=== PATIENT | male | born 1955 ===

== ENCOUNTER 2021-06-27 17:33 | Emergency (ER) | payer SELFPAY ==
[2021-06-27 17:41] VITALS: BP 147/90
[2021-06-27 18:35] LABS: Basophils # (Auto) 0.1 K/mm3 (0.0-0.1); Basophils % (Auto) 1.4 % (0.0-1.8); Eosinophils # (Auto) 0.1 K/mm3 (0.0-0.4); Eosinophils % (Auto) 1.3 % (0.0-4.3); Lymphocytes # (Auto) 0.8 K/mm3 (1.2-5.4); Lymphocytes % (Auto) 20.6 % (13.4-35.0); Mean Corpuscular HGB Conc 30 % (32-34); Mean Corpuscular Volume 80 fl (84-94); Monocytes # (Auto) 0.3 K/mm3 (0.0-0.8); Monocytes % (Auto) 7.6 % (0.0-7.3); Platelet Count 264 K/mm3 (140-440); Red Cell Distribution Width 15.5 % (13.2-15.2)
[2021-06-27 18:37] LABS: Hematocrit 42.6 % (35.5-45.6); Hemoglobin 12.8 gm/dl (11.8-15.2)
[2021-06-27 18:53] LABS: Alanine Aminotransferase 36 units/L (7-56); Albumin 4.4 g/dL (3.9-5); BUN/Creatinine Ratio 12; Blood Urea Nitrogen 12 mg/dL (9-20); Calcium 8.9 mg/dL (8.4-10.2); Hemolysis Index 9
--- NOTE | 2021-06-27 19:46 | Emergency Department Report ---
HPI - General Chief Complaint: Weakness Time Seen by Provider: 06/27/21 18:01 - HPI HPI: 65-year-old -[place] male presents to the emergency department with a complaint of having some generalized weakness and fatigue. When the patient first arrived to the emergency department for triage he said that he felt as if he was going to pass out. However, at the time of my examination the patient says that he feels somewhat improved. He denies any headache, vision change, slurred speech, chest pain, fever. He does complain of generalized back pain but says that this is a chronic issue for him. Patient denies having any past medical history but also admits that he has never seen a primary care physician. He denies any tobacco use or illicit drug use. The patient is a daily alcohol drinker but denies any history of dependence or significant withdrawal. ED Review of Systems ROS: Stated complaint: WEAK Other details as noted in HPI Comment: All other systems reviewed and negative Constitutional: weakness, other (Fatigue). denies: chills, fever Eyes: denies: eye pain, vision change ENT: denies: ear pain, throat pain Respiratory: denies: cough, shortness of breath Cardiovascular: denies: chest pain, palpitations Gastrointestinal: denies: abdominal pain, vomiting Genitourinary: denies: dysuria, discharge Musculoskeletal: back pain (Chronic). denies: arthralgia Skin: denies: rash, lesions Neurological: other (Dizziness/lightheadedness). denies: headache Physical Exam - Physical Exam Vital Signs: Vital Signs 06/27/21 17:40 Temperature 98.3 F Pulse Rate 101 H Respiratory 18 Rate Blood Pressure 147/90 [Left] O2 Sat by Pulse 97 Oximetry Physical Exam: GENERAL: The patient is well-developed well-nourished. HENT: Normocephalic. Atraumatic. Patient has moist mucous membranes. EYES: Extraocular motions are intact. No nystagmus. NECK: Supple. Trachea is midline. CHEST/LUNGS: Clear to auscultation. There is no respiratory distress noted. HEART/CARDIOVASCULAR: Regular. There is no tachycardia. There is no murmur. ABDOMEN: Abdomen is soft, nontender. Patient has normal bowel sounds. There is no abdominal distention. SKIN: Skin is warm and dry. NEURO: The patient is awake, alert, and oriented. The patient is cooperative. The patient has no focal neurologic deficits. Normal speech. Cranial nerves II through XII grossly intact. No facial asymmetry. No pronator drift or dy smetria. MUSCULOSKELETAL: There is no tenderness or deformity. There is no limitation range of motion. Muscle strength 5 out of 5 for upper and lower extremities bilaterally. BACK: There is both thoracic and lumbar bilateral paraspinal tenderness to palpation. ED Course Vital Signs 06/27/21 17:40 Temperature 98.3 F Pulse Rate 101 H Respiratory 18 Rate Blood Pressure 147/90 [Left] O2 Sat by Pulse 97 Oximetry ED Medical Decision Making - Lab Data Result diagrams: 06/27/21 18:06/27/21 18: Lab Results 06/27/21 06/27/21 06/27/21 Range/Units 18: 18: 18:22 WBC 4.1 L (4.5-11.0) K/mm3 RBC 5.30 H (3.65-5.03) M/mm3 Hgb 12.8 (11.8-15.2) gm/dl Hct 42.6 (35.5-45.6) % MCV 80 L (84-94) fl MCH 24 L (28-32) pg MCHC 30 L (32-34) % RDW 15.5 H (13.2-15.2) % Plt Count 264 (140-440) K/mm3 Lymph % (Auto) 20.6 (13.4-35.0) % [place] % (Auto) 7.6 H (0.0-7.3) % Eos % (Auto) 1.3 (0.0-4.3) % Baso % (Auto) 1.4 (0.0-1.8) % Lymph # (Auto) 0.8 L (1.2-5.4) K/mm3 [place] # (Auto) 0.3 (0.0-0.8) K/mm3 Eos # (Auto) 0.1 (0.0-0.4) K/mm3 Baso # (Auto) 0.1 (0.0-0.1) K/mm3 Seg Neutrophils % 69.1 (40.0-70.0) % Seg Neutrophils # 2.8 (1.8-7.7) K/mm3 Sodium 140 (137-145) mmol/L Potassium 3.7 (3.6-5.0) mmol/L Chloride 100.4 (98-107) mmol/L Carbon Dioxide 17 L (22-30) mmol/L Anion Gap 26 mmol/L BUN 12 (9-20) mg/dL Creatinine 1.0 (0.8-1.3) mg/dL Estimated GFR > 60 ml/min BUN/Creatinine Ratio 12 % Glucose 93 (75-100) mg/dL Calcium 8.9 (8.4-10.2) mg/dL Total Bilirubin 0.20 (0.1-1.2) mg/dL AST 61 H (5-40) units/L ALT 36 (7-56) units/L Alkaline Phosphatase 66 (35-129) units/L Total Protein 7.7 (6.3-8.2) g/dL Albumin 4.4 (3.9-5) g/dL Albumin/Globulin Ratio 1.3 % TSH 0.143 L (0.270-4.200) mlU/mL - Medical Decision Making This patient presented to the emergency department with a complaint of some generalized weakness and fatigue, lightheadedness/dizziness. The patient has not followed up with a primary care physician in decades. On examination he does not have any focal, motor or sensory deficits and his cranial nerves are intact. Vital signs reassuring including being afebrile, thus far. Labs are mostly unremarkable including CBC, metabolic panel, but the TSH level is slightly low concerning for possible mild hyperthyroidism. However he does not appear to have thyrotoxicosis or any thyroid storm. When we went to get an EKG performed the patient appears to have eloped from the emergency department. Critical Care Time: No Critical care attestation.: If time is entered above; I have spent that time in minutes in the direct care of this critically ill patient, excluding procedure time. ED Disposition Clinical Impression: Generalized weakness, Lightheaded, Chronic back pain Disposition: 07 LEFT AWOL/ELOPED Is pt being admited?: No Condition: Stable Time of Disposition: 19:57
== END 2021-06-27 19:00 | disposition left against medical advice (07) ==
LOC: ED 17:33
DX: R53.1 Weakness (principal); R42 Dizziness and giddiness; G89.29 Other chronic pain; M54.9 Dorsalgia, unspecified
CPT/HCPCS: 36415; 80053; 84443; 85025; 99282